=== PATIENT | female | born 1960 | race Two or more races ===

== ENCOUNTER 2023-05-03 07:11 | Day surgery (SDC) | payer OTHER ==
[~2023-05-03] VITALS: Ht 157.5 cm; Wt 68.5 kg
[~2023-05-03 07:11] MED LIST: C-500500 M1 PO; CARDIZEM CD240 MG PO; ENALAPRIL MALEA10 MG PO
== END 2023-05-03 15:15 | disposition home or self-care (01) ==
LOC: CIR.AMB 07:11
PROVIDERS: ATTEND Colon & Rectal Surgery
DX: D01.3 Carcinoma in situ of anus and anal canal (principal); K62.89 Other specified diseases of anus and rectum; D12.8 Benign neoplasm of rectum; Z20.822 Contact with and (suspected) exposure to COVID-19; I10 Essential (primary) hypertension